=== PATIENT | male | born 1965 | race Caucasian/White ===

== ENCOUNTER 2017-05-18 22:37 | Emergency (ER) | payer OTHER ==
[~2017-05-18] VITALS: Ht 172.7 cm; Wt 100.0 kg
[~2017-05-18 22:37] MED LIST: ADDE30XR PO; BUSP10TA8 PO; GEOD20CA OR
[2017-05-18 22:50] VITALS: BP 145/85; PULSE 98; RESP 22; TEMP 98.6; O2SAT 100
[2017-05-18] MEDS ORDERED: ZIPR20 PO (22:56)
[2017-05-18] MEDS ORDERED: BUSP30TA PO (22:56)
[2017-05-18] MEDS ORDERED: ADDE30XR PO (22:56)
[2017-05-18] MEDS ORDERED: ZIPRASIDONE MESYLATE 20 MG VIAL IM ONE (23:00)
[2017-05-18] MEDS ORDERED: diphenhydrAMINE HCL 50 MG/ML VIAL IM ONE (23:00)
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
[2017-05-18 23:31] LABS: AUTOMATED NEUTROPHIL # 17.1 TH/MM3 (1.8-7.7); BASOPHIL # 0.1 TH/MM3 (0-0.2); BASOPHIL % 0.6 % (0.0-2.0); HEMATOCRIT 43.3 % (39.0-51.0); HEMO FLAGS DIFF FINAL; LYMPH % 8.5 % (9.0-44.0); LYMPHOCYTE # 1.8 TH/MM3 (1.0-4.8); MEAN CELL VOLUME 84.9 FL (80.0-100.0); MEAN CORPUSCULAR HGB CONC 34.2 % (32.0-36.0); MONO % 8.9 % (0.0-8.0); PLATELET COUNT 294 TH/MM3 (150-450); RED CELL DISTRIBUTION WIDTH 13.6 % (11.6-17.2); WHITE BLOOD COUNT 20.9 TH/MM3 (4.0-11.0)
[2017-05-18 23:36] LABS: AMPHETAMINE, URINE POS (NEG); BARBITURATES, URINE NEG (NEG); COCAINE, URINE NEG (NEG)
[2017-05-18 23:46] LABS: ANION GAP 15 MEQ/L (5-15)
[2017-05-18 23:51] LABS: ALKALINE PHOSPHATASE 88 U/L (45-117); ALT (GPT) 41 U/L (12-78); AST (GOT) 45 U/L (15-37); BICARBONATE 22.1 MEQ/L (21.0-32.0); BLOOD UREA NITROGEN 13 MG/DL (7-18); CHLORIDE 105 MEQ/L (98-107); GLOMERULAR FILTRATION RATE 73 ML/MIN (>89); POTASSIUM 3.7 MEQ/L (3.5-5.1); SODIUM (NA) 142 MEQ/L (136-145); TOTAL BILIRUBIN ADULT 0.5 MG/DL (0.2-1.0)
[2017-05-18 23:52] LABS: ACETAMINOPHEN LESS THAN 2.0 MCG/ML (10.0-30.0)
[2017-05-19 02:28] VITALS: BP 135/95; PULSE 98; RESP 18; TEMP 97.9; O2SAT 98
[2017-05-19 06:35] VITALS: BP 110/60; PULSE 72; RESP 20
[2017-05-19 10:38] VITALS: BP 127/70; PULSE 73; RESP 18; O2SAT 99
[2017-05-19 11:23] VITALS: BP 127/70; PULSE 73; RESP 18; O2SAT 99
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
== END 2017-05-19 12:05 | disposition home or self-care (01) ==
LOC: NEPD 22:37 → NEPJ 05-19 12:05
DX: F43.25 Adjustment disorder with mixed disturbance of emotions and conduct (principal); F10.10 Alcohol abuse, uncomplicated; F12.90 Cannabis use, unspecified, uncomplicated; F15.90 Other stimulant use, unspecified, uncomplicated; F31.9 Bipolar disorder, unspecified; F20.9 Schizophrenia, unspecified; Z72.0 Tobacco use; Y90.6 Blood alcohol level of 120-199 mg/100 ml
CPT/HCPCS: 80053; 80307; 85025; 96372; 99284; J1200; J3486

== ENCOUNTER 2017-11-06 17:43 | Inpatient (IN) | payer OTHER, MEDICARE ==
[~2017-11-06] VITALS: Ht 175.3 cm; Wt 77.5 kg
[~2017-11-06 17:43] MED LIST changes: -BUSP10TA8 PO; +BUSP30TA PO; -GEOD20CA OR; +ZIPR20 PO
[2017-11-06 17:48] VITALS: BP 184/102; PULSE 96; RESP 16; TEMP 97.9; O2SAT 98
[2017-11-06] MEDS ORDERED: HALOPERIDOL LACTATE 5 MG/ML AMP IM ONE (18:00)
[2017-11-06] MEDS ORDERED: diphenhydrAMINE HCL 50 MG/ML VIAL IM ONE (18:00)
--- NOTE | 2017-11-06 18:00 | PD ---
HPI Chief Complaint: Psychiatric Symptoms Time Seen by Provider: 17:54 Travel History International Travel<30 days: No Contact w/Intl Traveler<30days: No Traveled to known affect area: No History of Present Illness HPI Patient 52-year-old male presents emergency department for evaluation of probable psychosis. The patient told EMS that a snake crawled into his anus and is attempting to crawl out of his penis. According to bystanders patient was ejaculating and public and may have been eating his own ejaculate. He has a history of presentations for psychosis bipolar disorder and schizophrenia to this institution. Given his psychosis he cannot elaborate any further states he hurts in his bottom but no other pain. He was placed under Del Valle act by law enforcement. [facility] Past Medical History ADD: Yes Bipolar Disorder: Yes Diminished Hearing: No Schizophrenia: Yes Social History Alcohol Use: Yes (3 TALL BOYS DAILY) Tobacco Use: Yes (CIGARS) Substance Use: Yes Allergies-Medications (Allergen,Severity, Reaction): Coded Allergies: morphine (Unverified Adverse Reaction, Intermediate, Nausea/Vomiting, 06/02) Reported Meds & Prescriptions Reported Meds & Active Scripts Active Reported Geodon (Ziprasidone) 20 Mg Cap 30 Mg PO BID Buspirone (Buspirone HCl) 30 Mg Tab 40 Mg PO TID Adderall Xr 24 HR (Amphetamine/Dextroamphetamine) 30 Mg Cap 30 Mg PO DAILY Once daily in the morning. Review of Systems ROS Limitations: Psychotic Physical Exam Narrative GENERAL: Well-developed well-nourished, Psychotic, screaming profanities. SKIN: Focused skin assessment warm/dry. HEAD: Atraumatic. Normocephalic. EYES: Pupils equal and round. No scleral icterus. No injection or drainage. ENT: No nasal bleeding or discharge. Mucous membranes pink and moist. NECK: Trachea midline. No JVD. CARDIOVASCULAR: Regular rate and rhythm. No murmur appreciated. RESPIRATORY: No accessory muscle use. Clear to auscultation. Breath sounds equal bilaterally. GASTROINTESTINAL: Abdomen soft, non-tender, nondistended. Hepatic and splenic margins not palpable. GENITOURINARY: No foreign body seen at the urethral meatus, no blood at the urethral meatus, rectal exam performed with nursing high school mathematics teacher and security in the room, no foreign body seen in the rectum, no gross blood. MUSCULOSKELETAL: No obvious deformities. No clubbing. No cyanosis. No edema. NEUROLOGICAL: Awake and alert. No obvious cranial nerve deficits. Moving all 4 extremities. Pressured speech. PSYCHIATRIC: Psychotic, screaming, unable to assess further. Data Data Last Documented VS Vital Signs Date Time Temp Pulse Resp B/P (MAP) Pulse Ox O2 Delivery O2 Flow Rate FiO2 11/06/17 18:22 81 17 148/70 (96) 100 Room Air 11/06/17 17:48 97.9 Orders Orders Complete Blood Count With Diff (11/06/17 17:54) Comprehensive Metabolic Panel (11/06/17 17:54) Thyroid Stimulating Hormone (11/06/17 17:54) Urinalysis - C+S If Indicated (11/06/17 17:54) Psych Screen (11/06/17 17:54) Haloperidol Inj (Haldol Inj) (11/06/17 18:00) Drug Screen, Random Urine (11/06/17 17:54) Alcohol (Ethanol) (11/06/17 17:54) Salicylates (Aspirin) (11/06/17 17:54) Tylenol (Acetaminophen) (11/06/17 17:54) Ct Abd/Pel W/O Iv Contrast (11/06/17 ) Diphenhydramine Inj (Benadryl Inj) (11/06/17 18:00) Restraints Violent (11/06/17 18:57) Creatine Kinase (Cpk) (11/06/17 19:30) Labs Laboratory Tests Test 11/06/17 00:00 11/06/17 18:00 Urine Color YELLOW Urine Turbidity HAZY Urine pH 6.0 Urine Specific Adrian 1.029 Urine Protein 100 mg/dL Urine Glucose (UA) NEG mg/dL Urine Ketones 10 mg/dL Urine Occult Blood SMALL Urine Nitrite NEG Urine Bilirubin NEG Urine Urobilinogen 2.0 MG/DL Urine Leukocyte Esterase NEG Urine RBC 10 /hpf Urine WBC 4 /hpf Urine Calcium Oxalate Crystals FEW /hpf Urine Mucus FEW /lpf Urine Sperm MOD Microscopic Urinalysis Comment CULT NOT INDICATED White Blood Count 8.9 TH/MM3 Red Blood Count 4.87 MIL/MM3 Hemoglobin 14.7 GM/DL Hematocrit 42.9 % Mean Corpuscular Volume 88.1 FL Mean Corpuscular Hemoglobin 30.1 PG Mean Corpuscular Hemoglobin Concent 34.2 % Red Cell Distribution Width 15.0 % Platelet Count 305 TH/MM3 Mean Platelet Volume 8.6 FL Neutrophils (%) (Auto) 69.8 % Lymphocytes (%) (Auto) 16.8 % Monocytes (%) (Auto) 12.1 % Eosinophils (%) (Auto) 0.8 % Basophils (%) (Auto) 0.5 % Neutrophils # (Auto) 6.2 TH/MM3 Lymphocytes # (Auto) 1.5 TH/MM3 Monocytes # (Auto) 1.1 TH/MM3 Eosinophils # (Auto) 0.1 TH/MM3 Basophils # (Auto) 0.0 TH/MM3 CBC Comment DIFF FINAL Differential Comment Blood Urea Nitrogen 11 MG/DL Creatinine 0.83 MG/DL Random Glucose 84 MG/DL Total Protein 7.2 GM/DL Albumin 4.0 GM/DL Calcium Level 8.9 MG/DL Alkaline Phosphatase 72 U/L Aspartate Amino Transf (AST/SGOT) 43 U/L Alanine Aminotransferase (ALT/SGPT) 42 U/L Total Bilirubin 0.8 MG/DL Sodium Level 138 MEQ/L Potassium Level 4.0 MEQ/L Chloride Level 101 MEQ/L Carbon Dioxide Level 25.6 MEQ/L Anion Gap 11 MEQ/L Estimat Glomerular Filtration Rate 97 ML/MIN Thyroid Stimulating Hormone 3rd Gen 0.679 uIU/ML Salicylates Level 3.0 MG/DL Urine Opiates Screen NEG Acetaminophen Level LESS THAN 2.0 MCG/ML Urine Barbiturates Screen NEG Urine Amphetamines Screen POS Urine Benzodiazepines Screen NEG Urine Cocaine Screen NEG Urine Cannabinoids Screen NEG Ethyl Alcohol Level LESS THAN 3 MG/DL MDM Medical Decision Making Medical Screen Exam Complete: Yes Emergency Medical Condition: Yes Differential Diagnosis Psychosis, retained foreign body, urinary tract infection, substance abuse. Narrative Course Patient roomed in the emergency department, positive for amphetamines patient does have scripts for these according to the [employer]. Patient has CAT scan of his abdomen ordered, in addition to 4 mg of Ativan given by EMS the patient also received 50 mg of Benadryl and 5 mg of Haldol IM per me. Pending negative CAT scan will be medically cleared for psychiatric evaluation. He is under Del Valle act. Diagnosis Primary Impression: Unspecified psychosis Sohan Starr MD Nov 06, 2017 18:00
[2017-11-06 18:22] VITALS: BP 148/70; PULSE 81; RESP 17; O2SAT 100
[2017-11-06 18:30] LABS: AUTOMATED NEUTROPHIL # 6.2 TH/MM3 (1.8-7.7); BASOPHIL % 0.5 % (0.0-2.0); EOSINOPHIL # 0.1 TH/MM3 (0-0.4); EOSINOPHIL % 0.8 % (0.0-4.0); HEMATOCRIT 42.9 % (39.0-51.0); HEMOGLOBIN 14.7 GM/DL (13.0-17.0); LYMPH % 16.8 % (9.0-44.0); LYMPHOCYTE # 1.5 TH/MM3 (1.0-4.8); MEAN CELL VOLUME 88.1 FL (80.0-100.0); MEAN CORPUSCULAR HEMOGLOBIN 30.1 PG (27.0-34.0); MEAN CORPUSCULAR HGB CONC 34.2 % (32.0-36.0); MEAN PLATELET VOLUME 8.6 FL (7.0-11.0); MONO % 12.1 % (0.0-8.0); MONOCYTE # 1.1 TH/MM3 (0-0.9); NEUT % 69.8 % (16.0-70.0); PLATELET COUNT 305 TH/MM3 (150-450); RED BLOOD COUNT 4.87 MIL/MM3 (4.50-5.90); WHITE BLOOD COUNT 8.9 TH/MM3 (4.0-11.0)
[2017-11-06 18:48] LABS: BILIRUBIN, URINE NEG (NEG); BLOOD, URINE SMALL (NEG); CALCIUM OXALATE CRYSTALS,URINE FEW /hpf; GLUCOSE,URINE NEG (NEG); KETONE, URINE 10 mg/dL (NEG); MUCUS URINE FEW /lpf (OCC); NITRITE,URINE NEG (NEG); SPERM, URINE MOD; URINE COLOR YELLOW (YELLW/STRAW); URINE LEUKOCYTE ESTERASE NEG (NEG)
[2017-11-06 18:52] LABS: ALT (GPT) 42 U/L (12-78); AST (GOT) 43 U/L (15-37); BICARBONATE 25.6 MEQ/L (21.0-32.0); BLOOD UREA NITROGEN 11 MG/DL (7-18); CALCIUM 8.9 MG/DL (8.5-10.1); CHLORIDE 101 MEQ/L (98-107); CREATININE 0.83 MG/DL (0.60-1.30); GLOMERULAR FILTRATION RATE 97 ML/MIN (>89); GLUCOSE,RANDOM 84 MG/DL (74-106); SODIUM (NA) 138 MEQ/L (136-145)
[2017-11-06 19:03] LABS: ALKALINE PHOSPHATASE 72 U/L (45-117); TOTAL BILIRUBIN ADULT 0.8 MG/DL (0.2-1.0); TOTAL PROTEIN 7.2 GM/DL (6.4-8.2)
[2017-11-06 19:08] LABS: ACETAMINOPHEN LESS THAN 2.0 MCG/ML (10.0-30.0)
--- NOTE | 2017-11-06 19:44 | RADRPT ---
EXAM DATE/TIME: 11/06/2017 19:15 [place] COMPARISON: No previous studies available for comparison. INDICATIONS : Abdominal pain. ORAL CONTRAST: No oral contrast ingested. RADIATION DOSE: 12.25 CTDIvol (mGy) MEDICAL HISTORY : Non-responsive. SURGICAL HISTORY : Non-responsive. ENCOUNTER: Initial ACUITY: 1 day PAIN SCALE: Non-responsive LOCATION: abdomen TECHNIQUE: Volumetric scanning of the abdomen and pelvis was performed. Using automated exposure control and ad justment of the mA and/or kV according to patient size, radiation dose was kept as low as reasonably achievable to obtain optimal diagnostic quality images. DICOM format image data is available electro nically for review and comparison. FINDINGS: LOWER LUNGS: The visualized lower lungs are clear. LIVER: Homogeneous density without lesion. A 1.4 cm cyst is seen involving the left lobe. Hounsfield units a re 14. There is no dilation of the biliary tree. No calcified gallstones. SPLEEN: Normal size without lesion. PANCREAS: Within normal limits. KIDNEYS: Normal in size and shape. There is no mass, stone, or hydronephrosis. ADRENAL GLANDS: Within normal limits. VASCULAR: There is no aortic aneurysm. BOWEL/MESENTERY: The stomach, small bowel, and colon demonstrate no acute abnormality. There is no free intraperitone al air or fluid. Scattered colonic diverticuli. No acute inflammation. ABDOMINAL WALL: Within normal limits. RETROPERITONEUM: There is no lymphadenopathy. BLADDER: No wall thickening or mass. REPRODUCTIVE: Within normal limits. INGUINAL: There is no lymphadenopathy or hernia. MUSCULOSKELETAL: Within normal limits for patient age. CONCLUSION: 1. No acute abnormality. 2. Small hepatic cyst. 3. Colonic diverticulosis. Salvatore Fernandes Jr., MD on November 06, 2017 at 19:39 Board Certified Radiologist. This report was verified electronically.
[2017-11-06 23:08] VITALS: BP 140/78; PULSE 71; RESP 16; O2SAT 98
[2017-11-07 01:10] VITALS: BP 138/66; PULSE 80; RESP 17; O2SAT 98
[2017-11-07 06:33] VITALS: BP 144/75; PULSE 81; RESP 18; O2SAT 97
[2017-11-07 10:51] VITALS: BP 163/70; PULSE 86; RESP 16; TEMP 98.7; O2SAT 97
[2017-11-07] MEDS ORDERED: FLUMAZENIL 0.5 MG/5 ML VIAL IV PUSH PRN (11:30)
[2017-11-07] MEDS ORDERED: LORazepam 2 MG/ML VIAL IM PRN ×2 (11:30)
[2017-11-07] MEDS ORDERED: LORazepam 0.5 MG TAB PO PRN (11:30)
[2017-11-07] MEDS ORDERED: LORazepam 1 MG TAB PO PRN (11:30)
[2017-11-07] MEDS ORDERED: MAGNESIUM HYDROXIDE SUSP 30 ML CUP PO PRN (11:30)
[2017-11-07] MEDS ORDERED: LORazepam 2 MG/ML VIAL IV PUSH PRN ×4 (11:30)
[2017-11-07] MEDS ORDERED: ALUMINUM/MAGNESIUM/SIMETH 30 ML CUP PO PRN (11:30)
[2017-11-07] MEDS ORDERED: ZIPRASIDONE HCL 20 MG CAP PO SCH (11:30)
[2017-11-07] MEDS ORDERED: LORazepam 2 MG TAB PO PRN (11:30)
--- NOTE | 2017-11-07 11:44 | HHI.HP ---
Provisional Diagnosis Admission Date Florence I. Unspecified psychosis, r/o substance-induced psychosis, amphetamines use disorder Florence II. Deferred Florence III. UTI Certification of Person's Competence To Provide Express and Informed Consent I have personally examined Richard Tolliver , a person being served at [facility] on, Nov 07, 2017 11:26. Express and informed consent means consent voluntarily given in writing, by a competent person, after sufficient explanation and disclosure of the subject matter involved to enable the person to make a knowing and willful decision without any element of force, fraud, deceit, duress, or other form of constraint or coercion. This person is 18 years of age or older, is not now known to be incompetent to consent to treatment with a guardian advocate, and does not have a health care surrogate or proxy currently making medical treatment decisions. I have found this person to be one of the following: [] Competent to provide express and informed consent, as defined above, for voluntary admission to this facility and is competent to provide express and informed consent for treatment. He/she has the consistent capacity to make well reasoned, willful, and knowing decisions concerning his or her medical or mental health treatment. The person fully and consistently understands the purpose of the admission for examination/placement and is fully capable of personally exercising all rights assured [place] Incompetent to provide express and informed consent to voluntary admission, and this is incompetent to provide express and informed consent to treatment. The person must be transferred to involuntary status and a petition for a guardian advocate filed with the Circuit Court. [x] Refusing to provide express and informed consent to voluntary admission but is competent to provide express and informed consent for treatment. The person must be discharged or transferred to involuntary status. Form shall be completed within 24 hours of a person's arrival at the receiving facility and filed in the clinical record of each person: 1. Admitted on a voluntary basis 2. Permitted to provide express and informed consent to his/her own treatment 3. Allowed to transfer from involuntary to voluntary status 4. Prior to permitting a person to consent to his or her own treatment after having been previously found incompetent to consent to treatment. History of Present Illness Capacity: Has Capacity HPI Patient 52-year-old man, homeless, unemployed, single, with a documented psychiatric history of unspecified psychosis, substance induced psychosis, amphetamines, alcohol and cocaine use disorder, previous psychiatric hospitalizations, he is known in our department, he reports that he has a psychiatric history of psychosis and ADHD, he is on Geodon 30 mg, Adderall 30 mg , no significant medical history, who presents emergency department for evaluation of probable psychosis. The patient told EMS that a snake crawled into his anus and is attempting to crawl out of his penis. According to bystanders patient was ejaculating and public and may have been eating his own ejaculate. In toxicology patient was positive for amphetamines. Also has UTI. On psychiatric evaluation today the patient is irritable, poorly cooperative, very disorganized and paranoid. Patient says that he doesn't want to talk to me "you know where the snake is you know what is f... going on". The patient says that he has been using alcohol almost everyday, cocaine sometimes, and he takes his prescribed medication Adderall and Geodon. He cannot tell me what is is getting the medications prescribed from. Patient is very malodorous, disorganized, and despite of multiple attempts patient is unable to provide much significant information for the psychiatric assessment at this moment. Review of Systems Eyes: DENIES: Blurred vision, Diplopia, Eye inflammation, Eye pain, Vision loss , Photosensitivity, Double Vision Ears, nose, mouth, throat: DENIES: Tinnitus, Hearing loss, Vertigo, Nasal discharge, Oral lesions, Throat pain, Hoarseness, Ear Pain, Running Nose, Epistaxis, Sinus Pain, Toothache, Odynophagia Cardiovascular: DENIES: Chest pain, Palpitations, Syncope, Dyspnea on Exertion , PND, Lower Extremity Edema, Orthopnea, Claudication Genitourinary: DENIES: Sexual dysfunction, Urinary frequency, Urinary incontinence, Urgency, Hematuria, Dysuria, Nocturia, Penile Discharge, Testicular Pain, Testicular Swelling Musculoskeletal: DENIES: Joint pain, Muscle aches, Stiffness, Joint Swelling, Back pain, Neck pain Integumentary: DENIES: Abnormal pigmentation, Nail changes, Pruritus, Rash Hematologic/lymphatic: DENIES: Bruising, Lymphadenopathy Immunologic/allergic: DENIES: Eczema, Urticaria Neurologic: DENIES: Abnormal gait, Headache, Localized weakness, Paresthesias, Seizures, Speech Problems, Tremor, Poor Balance Psychiatric: COMPLAINS OF: Hallucinations, Delusions Except as stated in HPI: all other systems reviewed are Neg Substance Abuse History Drugs/Alcohol past 12 months Cocaine, amphetamines, alcohol Past Family Social History Coded Allergies: morphine (Unverified Adverse Reaction, Intermediate, Nausea/Vomiting, 06/02) Reported Medications Ziprasidone (Geodon) 20 Mg Cap, 30 MG PO BID, #60 CAP 0 Refills 05/18/17 Buspirone (Buspirone) 30 Mg Tab, 40 MG PO TID for Anxiety, TAB 0 Refills 05/18/17 Amphetamine-Dextroamphetamine ER 24 HR (Adderall Xr 24 HR) 30 Mg Cap, 30 MG PO DAILY for Hyperactivity Control, #30 CAP 0 Refills Once daily in the morning. 05/18/17 Current Medications Medications (Trade) Dose Ordered Sig/Karime Route Start Time Stop Time Status Last Admin (Ativan) 1 mg Q6H PRN PO 11/07/17 11:30 UNV (Ativan Inj) 1 mg Q6H PRN IM 11/07/17 11:30 UNV (Ativan) 0.5 mg Q12H PRN PO 11/07/17 11:30 UNV (Ativan Inj) 0.5 mg Q12H PRN IM 11/07/17 11:30 UNV (Tylenol) 650 mg Q4H PRN PO 11/07/17 11:30 UNV (Milk Of Magnesia Liq) 30 ml DAILY PRN PO 11/07/17 11:30 UNV (Mag-Al Plus Susp Liq) 30 ml Q6H PRN PO 11/07/17 11:30 UNV (Habitrol 21 Mg Patch.24 Hr) 1 patch DAILY T-DERMAL 11/07/17 11:30 UNV (Romazicon Inj) 0.2 mg Q1M PRN IV PUSH 11/07/17 11:30 UNV (Ativan) 1 mg Q4H PRN PO 11/07/17 11:30 UNV (Ativan Inj) 1 mg Q4H PRN IV PUSH 11/07/17 11:30 UNV (Ativan) 2 mg Q2H PRN PO 11/07/17 11:30 UNV (Ativan Inj) 2 mg Q2H PRN IV PUSH 11/07/17 11:30 UNV (Ativan Inj) 2 mg Q1H PRN IV PUSH 11/07/17 11:30 UNV (Ativan Inj) 2 mg Q15M PRN IV PUSH 11/07/17 11:30 UNV (Buspar) 40 mg TID PO 11/07/17 13:00 UNV (Geodon) 30 mg BID PO 11/07/17 11:30 UNV Family Psych History He denies family psychiatric history Social History Patient reports that he is from [facility], he is homeless, unemployed, single, Patient's Strengths (min. 2) Verbal communication Physical Exam Unable to be performed due to lack of cooperation Vital Signs Vital Signs Date Time Temp Pulse Resp B/P (MAP) Pulse Ox O2 Delivery O2 Flow Rate FiO2 11/07/17 10:51 98.7 86 16 163/70 (101) 97 Room Air Lab Results Test 11/06/17 18:00 White Blood Count 8.9 TH/MM3 Red Blood Count 4.87 MIL/MM3 Hemoglobin 14.7 GM/DL Hematocrit 42.9 % Mean Corpuscular Volume 88.1 FL Mean Corpuscular Hemoglobin 30.1 PG Mean Corpuscular Hemoglobin Concent 34.2 % Red Cell Distribution Width 15.0 % Platelet Count 305 TH/MM3 Mean Platelet Volume 8.6 FL Neutrophils (%) (Auto) 69.8 % Lymphocytes (%) (Auto) 16.8 % Monocytes (%) (Auto) 12.1 % Eosinophils (%) (Auto) 0.8 % Basophils (%) (Auto) 0.5 % Neutrophils # (Auto) 6.2 TH/MM3 Lymphocytes # (Auto) 1.5 TH/MM3 Monocytes # (Auto) 1.1 TH/MM3 Eosinophils # (Auto) 0.1 TH/MM3 Basophils # (Auto) 0.0 TH/MM3 CBC Comment DIFF FINAL Differential Comment Blood Urea Nitrogen 11 MG/DL Creatinine 0.83 MG/DL Random Glucose 84 MG/DL Total Protein 7.2 GM/DL Albumin 4.0 GM/DL Calcium Level 8.9 MG/DL Alkaline Phosphatase 72 U/L Aspartate Amino Transf (AST/SGOT) 43 U/L Alanine Aminotransferase (ALT/SGPT) 42 U/L Total Bilirubin 0.8 MG/DL Sodium Level 138 MEQ/L Potassium Level 4.0 MEQ/L Chloride Level 101 MEQ/L Carbon Dioxide Level 25.6 MEQ/L Anion Gap 11 MEQ/L Estimat Glomerular Filtration Rate 97 ML/MIN Total Creatine Kinase 755 U/L Creatine Kinase MB 10.8 NG/ML Creatine Kinase MB % 1.4 % Thyroid Stimulating Hormone 3rd Gen 0.679 uIU/ML Salicylates Level 3.0 MG/DL Urine Opiates Screen NEG Acetaminophen Level LESS THAN 2.0 MCG/ML Urine Barbiturates Screen NEG Urine Amphetamines Screen POS Urine Benzodiazepines Screen NEG Urine Cocaine Screen NEG Urine Cannabinoids Screen NEG Ethyl Alcohol Level LESS THAN 3 MG/DL Mental Status Examination Appearance: Disheveled, Malodorous Consciousness: Alert Orientation: Person Motor Activity: Normal gait Speech: Hesitant, Incoherent Language: Adequate Fund of Knowledge: Inadequate Attention and Concentration: Adequate Memory: Impaired Mood: Angry, Oppositional Affect: Irritable Thought Process & Associations: Loose associations, Disorganized Thought Content: Hallucinations, Delusional Hallucination Type: None Delusion Type: Paranoid Suicidal Ideation: No Suicidal Plan: No Suicidal Intention: No Homicidal Ideation: No Homicidal Plan: No Homicidal Intention: No Insight: Poor Judgment: Poor Assessment & Plan Problem List: (1) Unspecified psychosis ICD Codes: F29 - Unspecified psychosis not due to a substance or known physiological condition Status: Acute Assessment & Plan: On psychiatric evaluation today the patient is acutely psychotic, very malodorous, with prominent paranoia, visual hallucinations, disorganized and tangential speech. The patient has been brought to the hospital under [place] because he has been self exposing himself in the streets, he stating that his snakes are coming out of "his rectum and wanting to bite his penis". Patient is not providing any meaningful or useful information for a full psychiatric assessment at this moment for the level of psychosis. Due to his acute mental status the patient can potentially be a danger to himself and others and needs psychiatric admission for stabilization and safety. I will restart his Geodon 30 mg twice a day, hold Adderall after a real source for this prescription and its utility can be clarified. I will also psychiatry for second opinion, medicine for UTI. Patient will be transferred to [facility] unit. front desk worker intervention for for psychosocial assessment, collateral information, to coordinating a safe discharge. Patient also will be placed in [facility]. Assessment & Plan Estimated LOS: Hesham Brown MD Nov 07, 2017 11:44
[2017-11-07] MEDS ORDERED: busPIRone HCL 10 MG TAB PO SCH (13:00)
[2017-11-07 13:32] VITALS: BP 118/71; PULSE 97; RESP 15; TEMP 98.1; O2SAT 96
--- NOTE | 2017-11-07 14:15 | PD.CONS ---
HPI Service [facility] Hospitalists Consult Requested By Psychiatric service Reason for Consult Medical management, UTI Primary Care Physician Unknown Diagnoses: History of Present Illness Written by Yumiko Olvera, acting as scribe for Dr. Spence on 11/07/17 at 14: 00. This is a 52yo homeless male with a PMHX of schizophrenia and polysubstance abuse including cocaine and amphetamines who presented to [facility] ED under [place] for bizarre behavior secondary to acute psychosis and has been admitted to the inpatient psychiatric unit. Hospitalist services have been consulted for medical management and UTI. Patient seen and examined. Patient appears agitated and defensive only answering a few questions before saying "quit asking me questions". Per the ED note, patient stated a snake had crawled into his anus and was trying to come out of his penis. He also reportedly was masturbating in public and drinking his ejaculate. When asked specifically about urinary symptoms, patient states "I don't have no infection. I don't need no penicillin". Review of Systems Except as stated in HPI: all other systems reviewed are Neg Past Family Social History Allergies: Coded Allergies: morphine (Unverified Adverse Reaction, Intermediate, Nausea/Vomiting, 06/02) Past Medical History Schizophrenia Polysubstance abuse Past Surgical History Unable to obtain due to patients uncooperativeness Reported Medications Geodon (Ziprasidone) 20 Mg Cap 30 Mg PO BID Buspirone (Buspirone HCl) 30 Mg Tab 40 Mg PO TID Adderall Xr 24 HR (Amphetamine/Dextroamphetamine) 30 Mg Cap 30 Mg PO DAILY Once daily in the morning. Active Ordered Medications Current Medications Medications (Trade) Dose Ordered Sig/Karime Route Start Time Stop Time Status Last Admin (Ativan) 1 mg Q6H PRN PO 11/07/17 11:30 (Ativan Inj) 1 mg Q6H PRN IM 11/07/17 11:30 (Ativan) 0.5 mg Q12H PRN PO 11/07/17 11:30 (Ativan Inj) 0.5 mg Q12H PRN IM 11/07/17 11:30 (Tylenol) 650 mg Q4H PRN PO 11/07/17 11:30 (Milk Of Magnesia Liq) 30 ml DAILY PRN PO 11/07/17 11:30 (Mag-Al Plus Susp Liq) 30 ml Q6H PRN PO 11/07/17 11:30 (Habitrol 21 Mg Patch.24 Hr) 1 patch DAILY T-DERMAL 11/07/17 11:30 (Romazicon Inj) 0.2 mg Q1M PRN IV PUSH 11/07/17 11:30 (Ativan) 1 mg Q4H PRN PO 11/07/17 11:30 (Ativan Inj) 1 mg Q4H PRN IV PUSH 11/07/17 11:30 (Ativan) 2 mg Q2H PRN PO 11/07/17 11:30 (Ativan Inj) 2 mg Q2H PRN IV PUSH 11/07/17 11:30 (Ativan Inj) 2 mg Q1H PRN IV PUSH 11/07/17 11:30 (Ativan Inj) 2 mg Q15M PRN IV PUSH 11/07/17 11:30 (Buspar) 40 mg TID PO 11/07/17 13:00 Future Hold (Geodon) 20 mg BID PO 11/07/17 21:00 Family History "I don't know my family" Social History Patient admits to tobacco use of cigars "as many as I want". He reports occasional EtOH use and states "I'm not an alcoholic" when asked about specifics. He denies any drug use. Physical Exam Vital Signs Vital Signs Date Time Temp Pulse Resp B/P (MAP) Pulse Ox O2 Delivery O2 Flow Rate FiO2 11/07/17 13:32 98.1 97 15 118/71 (87) 96 11/07/17 12:47 11/07/17 10:51 98.7 86 16 163/70 (101) 97 Room Air 11/07/17 06:33 81 18 144/75 (98) 97 Room Air 11/07/17 01:10 80 17 138/66 (90) 98 Room Air 11/06/17 23:08 71 16 140/78 (98) 98 Room Air 11/06/17 18:22 81 17 148/70 (96) 100 Room Air 11/06/17 17:48 97.9 96 16 184/102 (129) 98 Physical Exam GENERAL: This is a well-nourished, well-developed disheveled male patient, in no apparent distress. Awake and alert. SKIN: No rashes, ecchymoses or lesions. Cool and dry. HEAD: Atraumatic. Normocephalic. No temporal or scalp tenderness. EYES: Pupils equal round and reactive. Extraocular motions intact. No scleral icterus. No injection or drainage. ENT: Nose without bleeding or purulent drainage. Throat without erythema, tonsillar hypertrophy or exudate. Uvula midline. Airway patent. NECK: Trachea midline. No lymphadenopathy. Supple, nontender, no meningeal signs. CARDIOVASCULAR: Regular rate and rhythm without murmurs, gallops, or rubs. RESPIRATORY: Clear to auscultation. Breath sounds equal bilaterally. No wheezes , rales, or rhonchi. GASTROINTESTINAL: Abdomen soft, non-tender, nondistended. No hepato-splenomegaly , or palpable masses. No guarding. MUSCULOSKELETAL: Extremities without clubbing, cyanosis, or edema. No joint tenderness, effusion, or edema noted. No calf tenderness. NEUROLOGICAL: Awake and alert. Cranial nerves II through XII grossly intact. Motor and sensory grossly within normal limits. Five out of 5 muscle strength in all muscle groups. Normal speech. PSYCHIATRIC: Guarded, defensive. Laboratory Laboratory Tests Test 11/06/17 18:00 White Blood Count 8.9 Red Blood Count 4.87 Hemoglobin 14.7 Hematocrit 42.9 Mean Corpuscular Volume 88.1 Mean Corpuscular Hemoglobin 30.1 Mean Corpuscular Hemoglobin Concent 34.2 Red Cell Distribution Width 15.0 Platelet Count 305 Mean Platelet Volume 8.6 Neutrophils (%) (Auto) 69.8 Lymphocytes (%) (Auto) 16.8 Monocytes (%) (Auto) 12.1 Eosinophils (%) (Auto) 0.8 Basophils (%) (Auto) 0.5 Neutrophils # (Auto) 6.2 Lymphocytes # (Auto) 1.5 Monocytes # (Auto) 1.1 Eosinophils # (Auto) 0.1 Basophils # (Auto) 0.0 CBC Comment DIFF FINAL Differential Comment Blood Urea Nitrogen 11 Creatinine 0.83 Random Glucose 84 Total Protein 7.2 Albumin 4.0 Calcium Level 8.9 Alkaline Phosphatase 72 Aspartate Amino Transf (AST/SGOT) 43 Alanine Aminotransferase (ALT/SGPT) 42 Total Bilirubin 0.8 Sodium Level 138 Potassium Level 4.0 Chloride Level 101 Carbon Dioxide Level 25.6 Anion Gap 11 Estimat Glomerular Filtration Rate 97 Total Creatine Kinase 755 Creatine Kinase MB 10.8 Creatine Kinase MB % 1.4 Thyroid Stimulating Hormone 3rd Gen 0.679 Salicylates Level 3.0 Urine Opiates Screen NEG Acetaminophen Level LESS THAN 2.0 Urine Barbiturates Screen NEG Urine Amphetamines Screen POS Urine Benzodiazepines Screen NEG Urine Cocaine Screen NEG Urine Cannabinoids Screen NEG Ethyl Alcohol Level LESS THAN 3 Result Diagram: 11/06/17 1800 11/06/17 1800 Imaging Last Impressions Abdomen/Pelvis CT 11/06/17 0000 Signed Impressions: Service Date/Time: Monday, November 06, 2017 19:15 - CONCLUSION: 1. No acute abnormality. 2. Small hepatic cyst. 3. Colonic diverticulosis. Salvatore Fernandes Jr., MD Assessment and Plan Assessment and Plan 52yo homeless male with a PMHX of schizophrenia and polysubstance abuse including cocaine and amphetamines who presented to [facility] ED under [place] for bizarre behavior secondary to acute psychosis and has been admitted to the inpatient psychiatric unit. Hospitalist services have been consulted for medical management and UTI. Schizophrenia Polysubstance abuse Acute psychosis - Management per psychiatric team - UA with small blood, mucus, oxalate crystals and sperm. No evidence of UTI. No indications for antibiotics. Rhabdomyolysis - suspect secondary to dehydration and polysubstance abuse - ck 755 - encourage po intake - continue to trend CK and monitor kidney function closely DVT prophylaxis - patient is ambulatory Thank you very kindly for this consultation. Will gladly follow patient along with you. This note was transcribed by PAXTON Cruz. I, Dr. Palak Spence personally performed the history, physical exam, and medical decision making; and confirmed the accuracy of the information in the transcribed note. Authenticated by Dr. Palak Spence on 11/07/17 at 14:00. Discussed Condition With nursing staff and patient Yumiko Olvera Nov 07, 2017 14:15 Palak Spence MD Nov 07, 2017 16:56
[2017-11-07] MEDS: ZIPRASIDONE HCL 20 MG CAP PO SCH (20:33)
[2017-11-08 05:53] VITALS: BP 117/74; PULSE 81; RESP 16; TEMP 98.2; O2SAT 97
[2017-11-08] MEDS: ZIPRASIDONE HCL 20 MG CAP PO SCH ×2 (08:15→20:04)
[2017-11-08] MEDS: NICOTINE 21 MG/24 HR PATCH T-DERMAL SCH (08:15)
[2017-11-08 09:06] LABS: BICARBONATE 27.2 MEQ/L (21.0-32.0); BLOOD UREA NITROGEN 10 MG/DL (7-18); CALCIUM 8.4 MG/DL (8.5-10.1); CHLORIDE 104 MEQ/L (98-107); CREATININE 0.85 MG/DL (0.60-1.30); GLOMERULAR FILTRATION RATE 95 ML/MIN (>89); GLUCOSE,RANDOM 151 MG/DL (74-106); SODIUM (NA) 137 MEQ/L (136-145)
[2017-11-08 09:07] LABS: CHOLESTEROL 155 MG/DL (120-200); TRIGLYCERIDES 109 MG/DL (42-150)
[2017-11-08 09:09] LABS: CHOLESTEROL/ HDL RATIO 2.64 RATIO; HDL CHOLESTEROL 58.6 MG/DL (40.0-60.0); LDL CHOLESTEROL 75 MG/DL (0-99)
[2017-11-08] MEDS: ACETAMINOPHEN 325 MG TAB PO PRN ×2 (10:51→20:05)
[2017-11-08 12:33] LABS: HEMOGLOBIN A1C 5.2 % (4.3-6.0)
[2017-11-08] MEDS: LORazepam 1 MG TAB PO PRN ×2 (14:39→20:04)
--- NOTE | 2017-11-08 15:09 | HHI.PYPN ---
Subjective Remarks This is a request for second opinion. Admission note was reviewed and I agree with this contents. Case was discussed with nursing and patient was evaluated. Patient is agitated, irritable and quite rude. He is demanding Adderall despite psychoeducation. He says that he sees a Dr. Avery and is also on Remeron and BuSpar and may have a psychotic diagnosis. Denies suicidal or homicidal ideation intent or plan. Appears internally preoccupied Mental Status Examination Appearance: Disheveled, Malodorous Consciousness: Alert Orientation: Person Motor Activity: Normal gait Speech: Hesitant, Incoherent Language: Adequate Fund of Knowledge: Inadequate Attention and Concentration: Adequate Memory: Impaired Mood: Angry, Oppositional Affect: Irritable Thought Process & Associations: Loose associations, Disorganized Thought Content: Hallucinations, Delusional Hallucination Type: None Delusion Type: Paranoid Suicidal Ideation: No Suicidal Plan: No Suicidal Intention: No Homicidal Ideation: No Homicidal Plan: No Homicidal Intention: No Insight: Poor Judgment: Poor Results Labs Test 11/08/17 07:55 Blood Urea Nitrogen 10 MG/DL Creatinine 0.85 MG/DL Random Glucose 151 MG/DL Calcium Level 8.4 MG/DL Sodium Level 137 MEQ/L Potassium Level 3.7 MEQ/L Chloride Level 104 MEQ/L Carbon Dioxide Level 27.2 MEQ/L Anion Gap 6 MEQ/L Estimat Glomerular Filtration Rate 95 ML/MIN Hemoglobin A1c 5.2 % Total Creatine Kinase 625 U/L Creatine Kinase MB 10.5 NG/ML Creatine Kinase MB % 1.7 % Triglycerides Level 109 MG/DL Cholesterol Level 155 MG/DL LDL Cholesterol 75 MG/DL HDL Cholesterol 58.6 MG/DL Cholesterol/HDL Ratio 2.64 RATIO Vitals/IOs Vital Signs Date Time Temp Pulse Resp B/P (MAP) Pulse Ox O2 Delivery O2 Flow Rate FiO2 11/08/17 05:53 98.2 81 16 117/74 (88) 97 11/07/17 10:51 Room Air Assessment & Plan Problem List: (1) Unspecified psychosis ICD Codes: F29 - Unspecified psychosis not due to a substance or known physiological condition Status: Acute Assessment & Plan I agree with the first opinion to continue petition. Criteria include acute psychosis. I recommend medication reconciliation next week Justification for Cont. Inpt. Patient would decompensate in a less restrictive setting Abdon Tolliver DO Nov 08, 2017 15:09
[2017-11-08 18:13] VITALS: BP 124/58; PULSE 84; RESP 16; TEMP 97.8; O2SAT 98
--- NOTE | 2017-11-08 22:40 | HHI.PR ---
Subjective Remarks NOT SEEN Objective Vitals Vital Signs Date Time Temp Pulse Resp B/P (MAP) Pulse Ox O2 Delivery O2 Flow Rate FiO2 11/08/17 18:13 97.8 84 16 124/58 (80) 98 11/08/17 05:53 98.2 81 16 117/74 (88) 97 Result Diagram: 11/06/17 1800 11/08/17 0755 Imaging Last Impressions Abdomen/Pelvis CT 11/06/17 0000 Signed Impressions: Service Date/Time: Monday, November 06, 2017 19:15 - CONCLUSION: 1. No acute abnormality. 2. Small hepatic cyst. 3. Colonic diverticulosis. Salvatore Fernandes Jr., MD Objective Remarks GENERAL: This is a well-nourished, well-developed disheveled male patient, in no apparent distress. Awake and alert. SKIN: No rashes, ecchymoses or lesions. Cool and dry. HEAD: Atraumatic. Normocephalic. No temporal or scalp tenderness. EYES: Pupils equal round and reactive. Extraocular motions intact. No scleral icterus. No injection or drainage. ENT: Nose without bleeding or purulent drainage. Throat without erythema, tonsillar hypertrophy or exudate. Uvula midline. Airway patent. NECK: Trachea midline. No lymphadenopathy. Supple, nontender, no meningeal signs. CARDIOVASCULAR: Regular rate and rhythm without murmurs, gallops, or rubs. RESPIRATORY: Clear to auscultation. Breath sounds equal bilaterally. No wheezes , rales, or rhonchi. GASTROINTESTINAL: Abdomen soft, non-tender, nondistended. No hepato-splenomegaly , or palpable masses. No guarding. MUSCULOSKELETAL: Extremities without clubbing, cyanosis, or edema. No joint tenderness, effusion, or edema noted. No calf tenderness. NEUROLOGICAL: Awake and alert. Cranial nerves II through XII grossly intact. Motor and sensory grossly within normal limits. Five out of 5 muscle strength in all muscle groups. Normal speech. PSYCHIATRIC: Guarded, defensive. A/P Assessment and Plan 52yo homeless male with a PMHX of schizophrenia and polysubstance abuse including cocaine and amphetamines who presented to [facility] ED under [place] for bizarre behavior secondary to acute psychosis and has been admitted to the inpatient psychiatric unit. Hospitalist services have been consulted for medical management and UTI. Schizophrenia Polysubstance abuse Acute psychosis - Management per psychiatric team - UA with small blood, mucus, oxalate crystals and sperm. No evidence of UTI. No indications for antibiotics. Rhabdomyolysis - suspect secondary to dehydration and polysubstance abuse - ck 755 - encourage po intake - continue to trend CK and monitor kidney function closely DVT prophylaxis - patient is ambulatory Michael Khan MD Nov 08, 2017 22:40
[2017-11-09 05:47] VITALS: BP 122/76; PULSE 80; RESP 17; TEMP 98.3; O2SAT 96
[2017-11-09] MEDS: ZIPRASIDONE HCL 20 MG CAP PO SCH (08:17)
[2017-11-09] MEDS: NICOTINE 21 MG/24 HR PATCH T-DERMAL SCH (08:17)
[2017-11-09] MEDS: LORazepam 1 MG TAB PO PRN (08:19)
--- NOTE | 2017-11-09 14:12 | HHI.PR ---
Subjective Remarks Follow-up rhabdomyolysis. States he is better denies muscle pain and urinary complaints. Refuses lab work. Discussed with nursing staff Objective Vitals Vital Signs Date Time Temp Pulse Resp B/P (MAP) Pulse Ox O2 Delivery O2 Flow Rate FiO2 11/09/17 05:47 98.3 80 17 122/76 (91) 96 11/08/17 18:13 97.8 84 16 124/58 (80) 98 Result Diagram: 11/06/17 1800 11/08/17 0755 Objective Remarks GENERAL: This is a well-nourished, well-developed disheveled male patient, in no apparent distress. Awake and alert. SKIN: No rashes, ecchymoses or lesions. Cool and dry. CARDIOVASCULAR: Regular rate and rhythm without murmurs, gallops, or rubs. RESPIRATORY: Clear to auscultation. Breath sounds equal bilaterally. No wheezes , rales, or rhonchi. GASTROINTESTINAL: Abdomen soft, non-tender, nondistended. No guarding. MUSCULOSKELETAL: Extremities without clubbing, cyanosis, or edema. No joint tenderness, effusion, or edema noted. No calf tenderness. NEUROLOGICAL: Awake and alert. Cranial nerves II through XII grossly intact. Motor and sensory grossly within normal limits. Five out of 5 muscle strength in all muscle groups. Normal speech. A/P Assessment and Plan 52yo homeless male with a PMHX of schizophrenia and polysubstance abuse including cocaine and amphetamines who presented to [facility] ED under [place] for bizarre behavior secondary to acute psychosis and has been admitted to the inpatient psychiatric unit. Hospitalist services have been consulted for medical management and UTI. Schizophrenia Polysubstance abuse Acute psychosis - Management per psychiatric team - UA with small blood, mucus, oxalate crystals and sperm. No evidence of UTI. No indications for antibiotics. Rhabdomyolysis - suspect secondary to dehydration and polysubstance abuse - ck 755 - encourage po intake - continue to trend CK and monitor kidney function closely, refusing lab work today. We will attempt tomorrow DVT prophylaxis - patient is ambulatory Michael Khan MD Nov 09, 2017 14:12
[2017-11-09 17:09] VITALS: BP 125/64; PULSE 64; RESP 17; TEMP 98.4; O2SAT 96
[2017-11-09 17:45] VITALS: BP 125/64; PULSE 64; RESP 17; TEMP 98.4; O2SAT 96
--- NOTE | 2017-11-09 17:47 | HHI.PYPN ---
Subjective Remarks Patient seen for follow-up, chart reviewed. Discussion with nursing reported the patient was noted to be irritable and rude to staff. Patient was found lying in hospital bed stating that he had been feeling "fine" and continued to endorse that there were snakes in the toilet and stated that they were biting although patient denies having had any perceptional snakes in the hospital patient continues to believe this to be true. Patient recalls having been at [employer] stating that someone has stolen his jacket was approached by a woman that stating it was his sister but was a commercial account officer. Patient area disorganized during interview with loosening associations and flight of ideas. Patient reports that he had gone to a local sandwich shop and had been taken by police after an employee called 911. Patient mentions that there are magnets that listed buildings continues with these bizarre delusions during interview. Patient states that he is homeless but does follow with Dr. Juany michaels outpatient psychiatrist which is next appointment is on 11/24/17 and also mentions that he has a commercial account officer also follows up with but unable to recall the name. Review of Systems Except as stated in HPI: all other systems reviewed are Neg Mental Status Examination Appearance: Disheveled, Malodorous Consciousness: Alert Orientation: Person Motor Activity: Normal gait Speech: Hesitant, Incoherent Language: Adequate Fund of Knowledge: Inadequate Attention and Concentration: Adequate Memory: Impaired Mood: Oppositional, Irritable Affect: Irritable Thought Process & Associations: Loose associations, Disorganized Thought Content: Hallucinations, Delusional Hallucination Type: None Delusion Type: Paranoid Suicidal Ideation: No Suicidal Plan: No Suicidal Intention: No Homicidal Ideation: No Homicidal Plan: No Homicidal Intention: No Insight: Poor Judgment: Poor Results Vitals/IOs Vital Signs Date Time Temp Pulse Resp B/P (MAP) Pulse Ox O2 Delivery O2 Flow Rate FiO2 11/09/17 17:09 98.4 64 17 125/64 (84) 96 11/07/17 10:51 Room Air Assessment & Plan Problem List: (1) Unspecified psychosis ICD Codes: F29 - Unspecified psychosis not due to a substance or known physiological condition Status: Acute Assessment & Plan Patient at this time noted to be disorganized, with flight of ideas and loosening associations along with bizarre delusions and paranoia of snakes biting him. We'll increase Geodon to 40 mg by mouth twice a day for psychosis we'll obtain collateral from his outpatient psychiatrist. We'll touch base with patient's commercial account officer to notify his current admission. Continue recommendations as per primary medical team. Discharge planning in progress Justification for Cont. Inpt. At risk for further decompensation if at lower level of care Discharge Planning To be determined Syed Piedra MD Nov 09, 2017 17:47
[2017-11-10 05:38] VITALS: BP 131/80; PULSE 71; RESP 18; TEMP 97.9
[2017-11-10] MEDS: ZIPRASIDONE HCL 20 MG CAP PO SCH ×2 (08:57→20:46)
[2017-11-10] MEDS: LORazepam 1 MG TAB PO PRN (08:57)
[2017-11-10] MEDS: NICOTINE 21 MG/24 HR PATCH T-DERMAL SCH (08:59)
--- NOTE | 2017-11-10 14:29 | HHI.PR ---
Subjective Remarks Follow-up rhabdomyolysis. Denies muscle pain and urinary complaints. Still refusing lab work. Benedict RN Objective Vitals Vital Signs Date Time Temp Pulse Resp B/P (MAP) Pulse Ox O2 Delivery O2 Flow Rate FiO2 11/10/17 05:38 97.9 71 18 131/80 (97) 11/09/17 17:45 98.4 64 17 125/64 (84) 96 11/09/17 17:09 98.4 64 17 125/64 (84) 96 Result Diagram: 11/06/17 1800 11/08/17 0755 Objective Remarks GENERAL: This is a well-nourished, well-developed disheveled male patient, in no apparent distress. Awake and alert. SKIN: No rashes, ecchymoses or lesions. Cool and dry. CARDIOVASCULAR: Regular rate and rhythm without murmurs, gallops, or rubs. RESPIRATORY: Clear to auscultation. Breath sounds equal bilaterally. No wheezes , rales, or rhonchi. GASTROINTESTINAL: Abdomen soft, non-tender, nondistended. No guarding. MUSCULOSKELETAL: Extremities without clubbing, cyanosis, or edema. No joint tenderness, effusion, or edema noted. No calf tenderness. NEUROLOGICAL: Awake and alert. Cranial nerves II through XII grossly intact. Motor and sensory grossly within normal limits. Five out of 5 muscle strength in all muscle groups. Normal speech. A/P Assessment and Plan 52yo homeless male with a PMHX of schizophrenia and polysubstance abuse including cocaine and amphetamines who presented to [facility] ED under [place] Act for bizarre behavior secondary to acute psychosis and has been admitted to the inpatient psychiatric unit. Hospitalist services have been consulted for medical management and UTI. Schizophrenia Polysubstance abuse Acute psychosis - Management per psychiatric team - UA with small blood, mucus, oxalate crystals and sperm. No evidence of UTI. No indications for antibiotics. Rhabdomyolysis. He is asymptomatic - suspect secondary to dehydration and polysubstance abuse - ck 755 - encourage po intake - continue to trend CK and monitor kidney function closely, refusing lab work again today. DVT prophylaxis - patient is ambulatory Discharge Planning Will sign off Michael Khan MD Nov 10, 2017 14:29
--- NOTE | 2017-11-10 15:50 | HHI.PYPN ---
Subjective Remarks Patient seen for follow-up, chart reviewed. Discussion she staff reported the patient continues to be delusional about snakes in the ground continues endorse auditory hallucinations and laughing inappropriately at times and hasn't compliant with medications. Patient was found lying on the unit noted to be calm and cooperative. Patient states that he slept well noted that his mood has been "great" and during interview continues to be noted to be delusional speaking about magnetic energy listing buildings as well as snakes coming from the ground continue with auditory hallucinations which she states "I can block them" and when asked to elaborate what the voices say patient just appears to be internally preoccupied at the laughing inappropriately. Patient denies any SI or HI and continued with auditory hallucinations but denies any visual hallucinations and continues with bizarre delusions. Review of Systems Except as stated in HPI: all other systems reviewed are Neg Mental Status Examination Appearance: Disheveled, Malodorous Consciousness: Alert Orientation: Person Motor Activity: Normal gait Speech: Hesitant Language: Adequate Fund of Knowledge: Inadequate Attention and Concentration: Adequate Memory: Impaired Mood: Irritable (less so today) Affect: Irritable (less so today) Thought Process & Associations: Loose associations, Disorganized Thought Content: Hallucinations, Delusional Hallucination Type: None Delusion Type: Paranoid Suicidal Ideation: No Suicidal Plan: No Suicidal Intention: No Homicidal Ideation: No Homicidal Plan: No Homicidal Intention: No Insight: Poor Judgment: Poor Results Vitals/IOs Vital Signs Date Time Temp Pulse Resp B/P (MAP) Pulse Ox O2 Delivery O2 Flow Rate FiO2 11/10/17 05:38 97.9 71 18 131/80 (97) 11/09/17 17:45 96 11/07/17 10:51 Room Air Assessment & Plan Problem List: (1) Schizoaffective disorder ICD Codes: F25.9 - Schizoaffective disorder, unspecified Assessment & Plan Patient this time continues with delusions nervous are nature as well as some paranoia along with persistent auditory hallucinations. Patient noted to be internally preoccupied during interview and responded to internal stimuli at times laughing inappropriately. Patient had recent increase in Geodon to 40 mg by mouth daily we'll continue current treatment as patient has only had one dose so far. Continue to monitor mood and behavior. Continue to encourage patient to maintain personal hygiene and participate in groups and activities. Discharge planning in progress Justification for Cont. Inpt. At risk for further decompensation if at lower level of care Discharge Planning To be determined Syed Piedra MD Nov 10, 2017 15:50
[2017-11-10 18:36] VITALS: BP 138/69; PULSE 77; RESP 18; TEMP 98.5; O2SAT 98
[2017-11-10 18:52] LABS: ALBUMIN 3.6 GM/DL (3.4-5.0); AST (GOT) 29 U/L (15-37); BICARBONATE 29.4 MEQ/L (21.0-32.0); BLOOD UREA NITROGEN 13 MG/DL (7-18); CALCIUM 8.6 MG/DL (8.5-10.1); CHLORIDE 103 MEQ/L (98-107); CREATININE 0.78 MG/DL (0.60-1.30); GLOMERULAR FILTRATION RATE 105 ML/MIN (>89); GLUCOSE,RANDOM 70 MG/DL (74-106); MAGNESIUM 2.3 MG/DL (1.5-2.5); SODIUM (NA) 140 MEQ/L (136-145)
[2017-11-10 18:54] LABS: ALT (GPT) 42 U/L (12-78)
[2017-11-10 18:56] LABS: ALKALINE PHOSPHATASE 65 U/L (45-117); TOTAL BILIRUBIN ADULT 0.2 MG/DL (0.2-1.0); TOTAL PROTEIN 7.1 GM/DL (6.4-8.2)
[2017-11-11 06:08] VITALS: BP 154/84; PULSE 70; RESP 18; TEMP 98; O2SAT 98
[2017-11-11] MEDS: ZIPRASIDONE HCL 20 MG CAP PO SCH (09:00)
[2017-11-11] MEDS: NICOTINE 21 MG/24 HR PATCH T-DERMAL SCH (09:00)
[2017-11-11] MEDS: busPIRone HCL 5 MG TAB PO SCH ×2 (14:15→20:14)
[2017-11-11 17:19] VITALS: BP 143/82; PULSE 78; RESP 18; TEMP 97; O2SAT 99
--- NOTE | 2017-11-11 17:34 | HHI.PYPN ---
Subjective Remarks Patient seen for follow-up, chart reviewed. Discussion with nursing staff reported that the patient continues to be delusional and refused medications last night but took this morning. Patient was found lying on hospital bed, calm and cooperative with interview. Patient states that he has been feeling tired with difficulty with sleep at night. He was noted to be slightly guarded with interview today and participated superficially. He continued to state that the "pills has magnets in them" and was vague when asked about the auditory hallucinations. He was counseled on importance of continuing treatment which he acknowledged. He states feeling anxious and that prior to his admission he was taking buspirone which helped. Review of Systems Except as stated in HPI: all other systems reviewed are Neg Mental Status Examination Appearance: Disheveled, Malodorous Consciousness: Alert Orientation: Person Motor Activity: Normal gait Speech: Hesitant Language: Adequate Fund of Knowledge: Inadequate Attention and Concentration: Adequate Memory: Impaired Mood: Irritable Affect: Other (guarded) Thought Process & Associations: Loose associations, Disorganized (less so today ) Thought Content: Hallucinations (denies today), Delusional Hallucination Type: None Delusion Type: Bizarre, Paranoid Suicidal Ideation: No Suicidal Plan: No Suicidal Intention: No Homicidal Ideation: No Homicidal Plan: No Homicidal Intention: No Insight: Poor Judgment: Poor Results Labs labs reviewed Test 11/10/17 18:03 Blood Urea Nitrogen 13 MG/DL Creatinine 0.78 MG/DL Random Glucose 70 MG/DL Total Protein 7.1 GM/DL Albumin 3.6 GM/DL Calcium Level 8.6 MG/DL Magnesium Level 2.3 MG/DL Alkaline Phosphatase 65 U/L Aspartate Amino Transf (AST/SGOT) 29 U/L Alanine Aminotransferase (ALT/SGPT) 42 U/L Total Bilirubin 0.2 MG/DL Sodium Level 140 MEQ/L Potassium Level 4.1 MEQ/L Chloride Level 103 MEQ/L Carbon Dioxide Level 29.4 MEQ/L Anion Gap 8 MEQ/L Estimat Glomerular Filtration Rate 105 ML/MIN Total Creatine Kinase 231 U/L Vitals/IOs Vital Signs Date Time Temp Pulse Resp B/P (MAP) Pulse Ox O2 Delivery O2 Flow Rate FiO2 11/11/17 17:19 97.0 78 18 143/82 (102) 99 11/07/17 10:51 Room Air Assessment & Plan Problem List: (1) Schizoaffective disorder ICD Codes: F25.9 - Schizoaffective disorder, unspecified Assessment & Plan Patient noted to be guarded today, although denied perceptual disturbances, continues to be noted to be internally preoccupied at times and endorsing bizarre delusions. Will increase ziprasidone to 60mg PO BID, start buspirone 5mg PO TID and mirtazapine 15mg PO HS. Continue to monitor mood and behavior. Discharge in planning. Justification for Cont. Inpt. At risk for further decompensation at lower level of care. Discharge Planning To be determined Syed Piedra MD Nov 11, 2017 17:34
[2017-11-11] MEDS: ZIPRASIDONE HCL 60 MG CAP PO SCH (20:15)
[2017-11-11] MEDS ORDERED: MIRTAZAPINE 15 MG TAB PO SCH (21:00)
[2017-11-12 05:31] VITALS: BP 161/93; PULSE 69; RESP 18; TEMP 77.5; O2SAT 98
[2017-11-12] MEDS: busPIRone HCL 5 MG TAB PO SCH (06:13)
[2017-11-12] MEDS: ZIPRASIDONE HCL 60 MG CAP PO SCH (08:48)
[2017-11-12] MEDS: NICOTINE 21 MG/24 HR PATCH T-DERMAL SCH (08:48)
[2017-11-12] MEDS ORDERED: MIRTA15 PO (10:52)
[2017-11-12] MEDS ORDERED: BUSP5TAB PO (10:52)
[2017-11-12] MEDS ORDERED: GEOD60CA PO (10:52)
--- NOTE | 2017-11-12 10:53 | HHI.DS ---
Psychiatry Discharge Summary Inpatient Psychiatric care?: Yes Advance Directive: No Reason Not Provided: Due to Patient Condition Mental Health AdvanceDirective: No Health Care Proxy: No Admission Admission Date Nov 07, 2017 at 11:26 Admission Diagnosis: (1) Schizoaffective disorder ICD Code: F25.9 - Schizoaffective disorder, unspecified Brief History Patient 52-year-old man, homeless, unemployed, single, with a documented psychiatric history of unspecified psychosis, substance induced psychosis, amphetamines, alcohol and cocaine use disorder, previous psychiatric hospitalizations, he is known in our department, he reports that he has a psychiatric history of psychosis and ADHD, he is on Geodon 30 mg, Adderall 30 mg , no significant medical history, who presents emergency department for evaluation of probable psychosis. The patient told EMS that a snake crawled into his anus and is attempting to crawl out of his penis. According to bystanders patient was ejaculating and public and may have been eating his own ejaculate. In toxicology patient was positive for amphetamines. Also has UTI. On psychiatric evaluation today the patient is irritable, poorly cooperative, very disorganized and paranoid. Patient says that he doesn't want to talk to me "you know where the snake is you know what is f... going on". The patient says that he has been using alcohol almost everyday, cocaine sometimes, and he takes his prescribed medication Adderall and Geodon. He cannot tell me what is is getting the medications prescribed from. Patient is very malodorous, disorganized, and despite of multiple attempts patient is unable to provide much significant information for the psychiatric assessment at this moment. Tobacco Use In Past 30 Days: Cigars/Pipe But Not Daily Alcohol Use: 4 or More Times Per Week Hospital Course Patient 52-year-old man, homeless, unemployed, single, with a documented psychiatric history of unspecified psychosis, substance induced psychosis, amphetamines, alcohol and cocaine use disorder, previous psychiatric hospitalizations, he is known in our department, he reports that he has a psychiatric history of psychosis and ADHD, he is on Geodon 30 mg, Adderall 30 mg , no significant medical history, who presents emergency department for evaluation of probable psychosis and transferred the inpatient psychiatry further evaluation and management. Patient started on Geodon and titrated up to 60mg PO daily, bupropion 5mg PO TID and mirtazapine 15mg. Patient was noted to continue with bizarre delusions, auditory hallucinations which began to improve along with less disorganization. He was noted to be compliant with treatment, cooperative with staff, had no behavioral dyscontrol. Patient was taken to mental health court and was discharged as ordered by the court as he was deemed to not continue to fit criteria for further involuntary psychiatric hospitalization. I have counseled patient on abstinence from substance use. Patient agreed to continue medication regimen and outpatient follow up for continuity of care. I have counseled the patient regarding warning signs for need to return to the psychiatric emergency room as part of a general safety plan. Patient advised to call 911 or go nearest ED in case of emergency. Patient agrees with plan. Results Blood Pressure 161 / 93 Vital Signs Date Time Temp Pulse Resp B/P (MAP) Pulse Ox O2 Delivery O2 Flow Rate FiO2 11/12/17 05:31 77.5 69 18 161/93 (115) 98 Laboratory Tests Test 11/10/17 18:03 Random Glucose 70 MG/DL (74-106) Laboratory Results Test 11/08/17 07:55 Cholesterol Level 155 MG/DL (120-200) HDL Cholesterol 58.6 MG/DL (40.0-60.0) Hemoglobin A1c 5.2 % (4.3-6.0) LDL Cholesterol 75 MG/DL (0-99) Triglycerides Level 109 MG/DL (42-150) Summary of Procedures None Imaging Last Impressions Abdomen/Pelvis CT 11/06/17 0000 Signed Impressions: Service Date/Time: Monday, November 06, 2017 19:15 - CONCLUSION: 1. No acute abnormality. 2. Small hepatic cyst. 3. Colonic diverticulosis. Salvatore Fernandes Jr., MD Pending results at discharge: No Medications # of Antipsychotic meds at D/C: 1 Approp Antipsych med options 1 - Minimum of three failed multiple trials of monotherapy. 2 - Documented plan to taper to monotherapy due to previous use of multiple meds OR cross-taper in progress at D/C. 3 - Documentation of augmentation of Clozapine. 4 - Justification other than those listed in allowable values 1-3, document here : Discharge Discharge Date: Nov 12, 2017 Discharge Diagnosis: (1) Schizoaffective disorder ICD Code: F25.9 - Schizoaffective disorder, unspecified Pt Condition on Discharge: Stable Discharge Disposition: Discharge Home Discharge Instructions Diet Instructions: As Tolerated, No Restrictions Activities you can perform: Regular-No Restrictions Discharge Time > 30 minutes Mental Status Examination Appearance: Disheveled Consciousness: Alert Orientation: Person Motor Activity: Normal gait Speech: Unremarkable Language: Adequate Fund of Knowledge: Inadequate Attention and Concentration: Adequate Memory: Impaired Mood: Irritable Affect: Other (guarded) Thought Process & Associations: Loose associations, Linear Thought Content: Hallucinations (denies today), Delusional Hallucination Type: None Delusion Type: Bizarre, Paranoid Suicidal Ideation: No Suicidal Plan: No Suicidal Intention: No Homicidal Ideation: No Homicidal Plan: No Homicidal Intention: No Insight: Poor Judgment: Poor Discharge/Advance Care Plan Health Problems: (1) Schizoaffective disorder Goals to promote your health * To prevent worsening of your condition and complications * To maintain your health at the optimal level Directions to meet your goals Take your medications as prescribed Follow your dietary instruction Follow activity as directed Keep your appointments as scheduled Take your immunizations and boosters as scheduled If your symptoms worsen call your PCP, if no PCP go to Urgent Care Center or Emergency Room For 11/05 questions related to your inpatient stay or results of tests pending at discharge, please contact Dr. Syed Piedra at Smoking is Dangerous to Your Health. Avoid second hand smoking Syed Piedra MD Nov 12, 2017 10:53
== END 2017-11-12 11:55 | disposition home or self-care (01) | DRG 885 ==
LOC: NEPE 17:43 → H270 11-07 11:26
PROVIDERS: ADMIT Student in an Organized Health Care Education/Training Program; ATTEND Student in an Organized Health Care Education/Training Program
DX: F25.9 Schizoaffective disorder, unspecified (principal); M62.82 Rhabdomyolysis; E86.0 Dehydration; F90.9 Attention-deficit hyperactivity disorder, unspecified type; F17.290 Nicotine dependence, other tobacco product, uncomplicated; F31.9 Bipolar disorder, unspecified; Z59.0 Homelessness
CPT/HCPCS: 74176; 80048; 80053; 80061; 80307; 81001; 82550; 82552; 83036; 83735; 84443; 85025; 96372; 99285; J1200; J1630

== ENCOUNTER 2017-11-15 06:55 | Emergency (ER) | payer OTHER ==
[~2017-11-15] VITALS: Ht 177.8 cm; Wt 80.0 kg
[~2017-11-15 06:55] MED LIST changes: -BUSP30TA PO; +BUSP5TAB PO; +GEOD60CA PO; +MIRTA15 PO; -ZIPR20 PO
[2017-11-15 07:16] VITALS: BP 127/90; PULSE 79; RESP 18; TEMP 98.2; O2SAT 99
--- NOTE | 2017-11-15 07:44 | PD ---
HPI Chief Complaint: Psychiatric Symptoms Time Seen by Provider: 07:22 Travel History International Travel<30 days: No Contact w/Intl Traveler<30days: No Traveled to known affect area: No History of Present Illness HPI Patient presents under [place] act by police for concern that he is off of his medications and cannot care for himself. Patient states that his [id number] 's [id number] owns the hospital and she doesn't want to talk to me and I should just read the paper. He denies any complaints other than once on the paper he says. History is very limited. PFSH Past Medical History ADD: Yes Bipolar Disorder: Yes Anxiety: Yes Depression: Yes Diminished Hearing: No Endocrine: No Gastrointestinal Disorders: No Genitourinary: No Immune Disorder: No Implanted Vascular Access Dvce: No Musculoskeletal: No Neurologic: No Reproductive: No Respiratory: No Schizophrenia: Yes Past Surgical History Other Surgery: Yes Social History Alcohol Use: Yes (3 [employer] DAILY) Tobacco Use: Yes (CIGARS) Substance Use: Yes Allergies-Medications (Allergen,Severity, Reaction): Coded Allergies: morphine (Unverified Adverse Reaction, Intermediate, Nausea/Vomiting, 06/02) Reported Meds & Prescriptions Reported Meds & Active Scripts Active Buspirone (Buspirone HCl) 5 Mg Tab 5 Mg PO Q8HR 30 Days Geodon (Ziprasidone) 60 Mg Cap 60 Mg PO BID 30 Days Mirtazapine 15 Mg Tab 15 Mg PO HS 30 Days Reported Adderall Xr 24 HR (Amphetamine/Dextroamphetamine) 30 Mg Cap 30 Mg PO DAILY Once daily in the morning. Review of Systems ROS Limitations: Poor Historian Physical Exam Narrative GENERAL: Well-nourished, well-developed patient. SKIN: Warm and dry. HEAD: Normocephalic and atraumatic. EYES: No injection or drainage. ENT: No nasal drainage noted. NECK: Supple, trachea midline. CARDIOVASCULAR: Regular rate and rhythm RESPIRATORY: No increased effort. No accessory muscle use. GASTROINTESTINAL: Abdomen nondistended. NEUROLOGICAL: Awake. Motor and sensory grossly within normal limits. Pressured speech. Data Data Last Documented VS Vital Signs Date Time Temp Pulse Resp B/P (MAP) Pulse Ox O2 Delivery O2 Flow Rate FiO2 11/15/17 08:06 75 18 11/15/17 07:16 98.2 127/90 (102) 99 Orders Orders Complete Blood Count With Diff (11/15/17 07:19) Comprehensive Metabolic Panel (11/15/17 07:19) Psych Screen (11/15/17 07:19) Drug Screen, Random Urine (11/15/17 07:19) Alcohol (Ethanol) (11/15/17 07:19) Labs Laboratory Tests Test 11/15/17 07:38 White Blood Count 10.9 TH/MM3 Red Blood Count 4.93 MIL/MM3 Hemoglobin 14.8 GM/DL Hematocrit 43.0 % Mean Corpuscular Volume 87.3 FL Mean Corpuscular Hemoglobin 30.1 PG Mean Corpuscular Hemoglobin Concent 34.4 % Red Cell Distribution Width 14.7 % Platelet Count 291 TH/MM3 Mean Platelet Volume 8.6 FL Neutrophils (%) (Auto) 73.3 % Lymphocytes (%) (Auto) 15.3 % Monocytes (%) (Auto) 9.5 % Eosinophils (%) (Auto) 1.5 % Basophils (%) (Auto) 0.4 % Neutrophils # (Auto) 8.0 TH/MM3 Lymphocytes # (Auto) 1.7 TH/MM3 Monocytes # (Auto) 1.0 TH/MM3 Eosinophils # (Auto) 0.2 TH/MM3 Basophils # (Auto) 0.0 TH/MM3 CBC Comment DIFF FINAL Differential Comment Blood Urea Nitrogen 17 MG/DL Creatinine 0.90 MG/DL Random Glucose 97 MG/DL Total Protein 7.3 GM/DL Albumin 4.0 GM/DL Calcium Level 8.8 MG/DL Alkaline Phosphatase 76 U/L Aspartate Amino Transf (AST/SGOT) 88 U/L Alanine Aminotransferase (ALT/SGPT) 67 U/L Total Bilirubin 1.2 MG/DL Sodium Level 133 MEQ/L Potassium Level 3.4 MEQ/L Chloride Level 99 MEQ/L Carbon Dioxide Level 24.6 MEQ/L Anion Gap 9 MEQ/L Estimat Glomerular Filtration Rate 89 ML/MIN Ethyl Alcohol Level LESS THAN 3 MG/DL MDM Medical Decision Making Medical Screen Exam Complete: Yes Emergency Medical Condition: Yes Medical Record Reviewed: Yes (past history confirm, recent visits for similar) Interpretation(s) CBC & BMP Diagram 11/15/17 07:38 Total Protein 7.3, Albumin 4.0, Calcium Level 8.8, Alkaline Phosphatase 76, Aspartate Amino Transf (AST/SGOT) 88 H, Alanine Aminotransferase (ALT/SGPT) 67, Total Bilirubin 1.2 H Differential Diagnosis Alcohol intoxication, psychosis, electrolyte abnormality Narrative Course Will check workup for medical clearance and reevaluate patient medically cleared for signs of psychosis, recent admit here for similar , [place] by police Diagnosis Primary Impression: Unspecified psychosis Geri Leon MD Nov 15, 2017 07:44
[2017-11-15 08:01] LABS: BASOPHIL % 0.4 % (0.0-2.0); EOSINOPHIL # 0.2 TH/MM3 (0-0.4); EOSINOPHIL % 1.5 % (0.0-4.0); HEMOGLOBIN 14.8 GM/DL (13.0-17.0); LYMPH % 15.3 % (9.0-44.0); LYMPHOCYTE # 1.7 TH/MM3 (1.0-4.8); MEAN CELL VOLUME 87.3 FL (80.0-100.0); MEAN CORPUSCULAR HEMOGLOBIN 30.1 PG (27.0-34.0); MEAN CORPUSCULAR HGB CONC 34.4 % (32.0-36.0); MEAN PLATELET VOLUME 8.6 FL (7.0-11.0); MONO % 9.5 % (0.0-8.0); NEUT % 73.3 % (16.0-70.0); PLATELET COUNT 291 TH/MM3 (150-450); RED BLOOD COUNT 4.93 MIL/MM3 (4.50-5.90); RED CELL DISTRIBUTION WIDTH 14.7 % (11.6-17.2); WHITE BLOOD COUNT 10.9 TH/MM3 (4.0-11.0)
[2017-11-15 08:18] LABS: AST (GOT) 88 U/L (15-37); BICARBONATE 24.6 MEQ/L (21.0-32.0); BLOOD UREA NITROGEN 17 MG/DL (7-18); CALCIUM 8.8 MG/DL (8.5-10.1); CHLORIDE 99 MEQ/L (98-107); GLOMERULAR FILTRATION RATE 89 ML/MIN (>89); GLUCOSE,RANDOM 97 MG/DL (74-106); SODIUM (NA) 133 MEQ/L (136-145)
[2017-11-15 08:19] LABS: ALT (GPT) 67 U/L (12-78)
[2017-11-15 08:21] LABS: ALKALINE PHOSPHATASE 76 U/L (45-117); TOTAL BILIRUBIN ADULT 1.2 MG/DL (0.2-1.0); TOTAL PROTEIN 7.3 GM/DL (6.4-8.2)
[2017-11-15] MEDS ORDERED: ZIPRASIDONE MESYLATE 20 MG VIAL IM ONE ×2 (09:30→20:45)
[2017-11-15] MEDS ORDERED: LORazepam 2 MG/ML VIAL IM ONE ×2 (09:30→20:45)
[2017-11-15 15:50] VITALS: BP 106/74; PULSE 68; RESP 20; TEMP 98.5; O2SAT 99
[2017-11-15 19:52] VITALS: BP 135/58; PULSE 83; RESP 15; TEMP 98.9; O2SAT 97
--- NOTE | 2017-11-15 22:07 | PD ---
Physical Exam Date Seen by Provider: Nov 15, 2017 Time Seen by Provider: 20:37 Narrative GENERAL: This is a well-nourished, well-developed patient, in no apparent distress. SKIN: No rashes, ecchymoses or lesions. Warm and dry. HEAD: Atraumatic. Normocephalic. EYES: PERRL, EOMI, no discharge or injection. No scleral icterus. EARS: Clear NOSE: Nasal turbinates appear normal. THROAT: Mucosa pink and moist. Airway patent. NECK: Trachea midline. supple, moves head freely. LUNGS: Clear to auscultation. CV: Regular in rhythm. ABDOMEN: Soft nontender. EXT: No clubbing cyanosis or edema. Data Data Last Documented VS Vital Signs Date Time Temp Pulse Resp B/P (MAP) Pulse Ox O2 Delivery O2 Flow Rate FiO2 11/15/17 19:52 98.9 83 15 135/58 (83) 97 Room Air Orders Orders Complete Blood Count With Diff (11/15/17 07:19) Comprehensive Metabolic Panel (11/15/17 07:19) Psych Screen (11/15/17 07:19) Drug Screen, Random Urine (11/15/17 07:19) Alcohol (Ethanol) (11/15/17 07:19) Lorazepam Inj (Ativan Inj) (11/15/17 09:30) Ziprasidone Inj (Geodon Inj) (11/15/17 09:30) Diet Regular Basic (11/15/17 Dinner) Restraints Violent (11/15/17 17:00) Restraints Violent (11/15/17 20:35) Ziprasidone Inj (Geodon Inj) (11/15/17 20:45) Lorazepam Inj (Ativan Inj) (11/15/17 20:45) Labs Laboratory Tests Test 11/15/17 07:38 11/15/17 09:08 White Blood Count 10.9 TH/MM3 Red Blood Count 4.93 MIL/MM3 Hemoglobin 14.8 GM/DL Hematocrit 43.0 % Mean Corpuscular Volume 87.3 FL Mean Corpuscular Hemoglobin 30.1 PG Mean Corpuscular Hemoglobin Concent 34.4 % Red Cell Distribution Width 14.7 % Platelet Count 291 TH/MM3 Mean Platelet Volume 8.6 FL Neutrophils (%) (Auto) 73.3 % Lymphocytes (%) (Auto) 15.3 % Monocytes (%) (Auto) 9.5 % Eosinophils (%) (Auto) 1.5 % Basophils (%) (Auto) 0.4 % Neutrophils # (Auto) 8.0 TH/MM3 Lymphocytes # (Auto) 1.7 TH/MM3 Monocytes # (Auto) 1.0 TH/MM3 Eosinophils # (Auto) 0.2 TH/MM3 Basophils # (Auto) 0.0 TH/MM3 CBC Comment DIFF FINAL Differential Comment Blood Urea Nitrogen 17 MG/DL Creatinine 0.90 MG/DL Random Glucose 97 MG/DL Total Protein 7.3 GM/DL Albumin 4.0 GM/DL Calcium Level 8.8 MG/DL Alkaline Phosphatase 76 U/L Aspartate Amino Transf (AST/SGOT) 88 U/L Alanine Aminotransferase (ALT/SGPT) 67 U/L Total Bilirubin 1.2 MG/DL Sodium Level 133 MEQ/L Potassium Level 3.4 MEQ/L Chloride Level 99 MEQ/L Carbon Dioxide Level 24.6 MEQ/L Anion Gap 9 MEQ/L Estimat Glomerular Filtration Rate 89 ML/MIN Ethyl Alcohol Level LESS THAN 3 MG/DL Urine Opiates Screen NEG Urine Barbiturates Screen NEG Urine Amphetamines Screen POS Urine Benzodiazepines Screen NEG Urine Cocaine Screen NEG Urine Cannabinoids Screen NEG MDM Medical Record Reviewed: Yes Supervised Visit with ELY: Yes Interpretation(s) Laboratory Tests Test 11/15/17 07:38 11/15/17 09:08 White Blood Count 10.9 TH/MM3 Red Blood Count 4.93 MIL/MM3 Hemoglobin 14.8 GM/DL Hematocrit 43.0 % Mean Corpuscular Volume 87.3 FL Mean Corpuscular Hemoglobin 30.1 PG Mean Corpuscular Hemoglobin Concent 34.4 % Red Cell Distribution Width 14.7 % Platelet Count 291 TH/MM3 Mean Platelet Volume 8.6 FL Neutrophils (%) (Auto) 73.3 % Lymphocytes (%) (Auto) 15.3 % Monocytes (%) (Auto) 9.5 % Eosinophils (%) (Auto) 1.5 % Basophils (%) (Auto) 0.4 % Neutrophils # (Auto) 8.0 TH/MM3 Lymphocytes # (Auto) 1.7 TH/MM3 Monocytes # (Auto) 1.0 TH/MM3 Eosinophils # (Auto) 0.2 TH/MM3 Basophils # (Auto) 0.0 TH/MM3 CBC Comment DIFF FINAL Differential Comment Blood Urea Nitrogen 17 MG/DL Creatinine 0.90 MG/DL Random Glucose 97 MG/DL Total Protein 7.3 GM/DL Albumin 4.0 GM/DL Calcium Level 8.8 MG/DL Alkaline Phosphatase 76 U/L Aspartate Amino Transf (AST/SGOT) 88 U/L Alanine Aminotransferase (ALT/SGPT) 67 U/L Total Bilirubin 1.2 MG/DL Sodium Level 133 MEQ/L Potassium Level 3.4 MEQ/L Chloride Level 99 MEQ/L Carbon Dioxide Level 24.6 MEQ/L Anion Gap 9 MEQ/L Estimat Glomerular Filtration Rate 89 ML/MIN Ethyl Alcohol Level LESS THAN 3 MG/DL Urine Opiates Screen NEG Urine Barbiturates Screen NEG Urine Amphetamines Screen POS Urine Benzodiazepines Screen NEG Urine Cocaine Screen NEG Urine Cannabinoids Screen NEG Differential Diagnosis MDM: High Differential diagnoses: Schizophrenia, schizoaffective disorder, bipolar, anxiety, depression, adjustment reaction, mood disorder NOS, ODD, depressive disorder NOS, dementia, dementia with agitation, psychosis NOS, substance induced mood disorder, DMDD, Asperger syndrome, infection,electrolyte abnormality, malingering. Narrative Course I was asked to come back and evaluate this patient due to his combative nature. He became very aggressive and threatening to the staff. At 2036 while a restraint orders were placed and the patient was medicated with Geodon 10 mg and Ativan 1 mg IM. This was a patient who was medicated earlier in the day. A direct [id number] has been performed. The patient is in 4. restraints appears that his agitation is improving. Once he becomes more sedate and compliant he'll be removed from restraints per protocol. Diagnosis Primary Impression: Unspecified psychosis Condition: Stable Antoni Villalobos Nov 15, 2017 22:07
[2017-11-15 22:20] VITALS: BP 130/76; PULSE 77; RESP 18; TEMP 98.2; O2SAT 97
== END 2017-11-16 02:57 ==
LOC: NEPC 06:55 → NEPJ 11-16 02:57
DX: F20.9 Schizophrenia, unspecified (principal); F31.9 Bipolar disorder, unspecified; Z72.0 Tobacco use; Z79.899 Other long term (current) drug therapy
CPT/HCPCS: 80053; 80307; 85025; 96372; 99285; J2060; J3486